=== PATIENT | male | born 1990 | race African-American/Black ===

== ENCOUNTER 2020-07-19 11:50 | Inpatient (IN) | payer SELFPAY ==
[~2020-07-19] VITALS: Ht 195.5 cm; Wt 120.2 kg
[2020-07-19 11:59] VITALS: BP 150/79
[2020-07-19 12:32] LABS: HEMATOCRIT 42.9 % (42.0-52.0); MEAN CELL VOLUME 88.1 fl (80.0-94.0); MEAN CORPUSCULAR HGB 27.3 pg (27.0-31.0); MEAN PLATELET VOLUME 9.4 fl (9.6-12.3); PLATELET COUNT AUTOMATED 164 10*3/uL (130-400); RED BLOOD COUNT 4.87 10*6/uL (4.50-5.90); RED CELL DISTRI WIDTH 12.8 % (0-14.5); WHITE BLOOD COUNT 19.2 10*3/uL (4.8-10.8)
[2020-07-19 12:45] LABS: ALBUMIN 3.5 gm/dl (3.1-4.5); ALKALINE PHOSPHATASE 85 U/L (45-117); BUN 8 mg/dl (7-24); CHLORIDE 107 mmol/L (98-107); CREATININE 0.99 mg/dL (0.70-1.30); POTASSIUM 3.9 mmol/L (3.5-5.1); SGOT/AST 17 IU/L (3-35); SGPT/ALT 26 U/L (12-78); SODIUM 139 mmol/L (136-145); TOTAL PROTEIN 7.6 gm/dL (6.4-8.2)
[2020-07-19 12:56] LABS: ATYPICAL LYMPHS 1 % (0-0); PLATELET SUFFICIENCY NORMAL (NORMAL); TOTAL CELLS COUNTED 100 #CELLS
--- NOTE | 2020-07-19 13:48 | NUR ---
PT WITH 0.9NS INCREASED TO 999 ML/HR PER ORDER.
[2020-07-19 14:18] VITALS: BP 122/71
--- NOTE | 2020-07-19 15:49 | NUR ---
PT EATING LUNCH TRAY, WITH CALL LIGHT IN REACH.
--- NOTE | 2020-07-19 16:02 | NUR ---
PT EAT 50% OF MEAL TRAY. RESTING IN BED WITH CALL LIGHT IN REACH.
--- NOTE | 2020-07-19 16:45 | NUR ---
PT STATES THAT PAIN NOT RELIEVED FROM THE MOTRIN. PT RESTLESS IN BED WITH CALL LIGHT IN REACH.
--- NOTE | 2020-07-19 21:03 | NUR ---
PT STATES HIS PAIN LEVEL IS A 6. NARCO GIVEN. PT RESTING IN BED W/ CALL LIHT IN REACH
--- NOTE | 2020-07-19 21:07 | NUR ---
PT EATING AND DRINKING W/O DIFFICULTY WHILE IN ED, NO ACUTE DISTRESS NOTED CALL LIGHT WITHIN REACH.
[2020-07-19 22:11] VITALS: BP 118/72
--- NOTE | 2020-07-20 04:30 | NUR ---
PATIENT AMBULATORY TO RESTROOM AT THIS TIME. NO DISTRESS NOTED. STEADY GAIT
[2020-07-20 06:12] LABS: BASO % 0.1 % (0.0-1.0); HEMATOCRIT 44.2 % (42.0-52.0); LYMPH # 1.2 10*3/uL (1.3-4.4); LYMPH % 6.9 % (27.0-41.0); MEAN CELL VOLUME 86.8 fl (80.0-94.0); MEAN CORPUSCULAR HGB 27.1 pg (27.0-31.0); MEAN CORPUSCULAR HGB CONC 31.2 g/dl (33.0-37.0); MEAN PLATELET VOLUME 9.7 fl (9.6-12.3); MONO # 0.4 10*3/uL (0.1-1.0); MONO % 2.2 % (3.0-9.0); NEUT # 16.2 10*3/uL (2.3-7.9); NEUT % 89.7 % (47.0-73.0); PLATELET COUNT AUTOMATED 172 10*3/uL (130-400); RED BLOOD COUNT 5.09 10*6/uL (4.50-5.90); RED CELL DISTRI WIDTH 12.4 % (0-14.5)
[2020-07-20 06:57] LABS: ALBUMIN 3.3 gm/dl (3.1-4.5); ALKALINE PHOSPHATASE 87 U/L (45-117); BUN 13 mg/dl (7-24); CHLORIDE 109 mmol/L (98-107); CREATININE 0.86 mg/dL (0.70-1.30); POTASSIUM 4.2 mmol/L (3.5-5.1); SGOT/AST 13 IU/L (3-35); SGPT/ALT 28 U/L (12-78); SODIUM 139 mmol/L (136-145); TOTAL PROTEIN 7.4 gm/dL (6.4-8.2)
[2020-07-20 07:05] VITALS: BP 132/88
[2020-07-20] MEDS ORDERED: AUGMENTIN 875875 MG PO (08:47)
[2020-07-20] MEDS ORDERED: PREDNISONE10 MG PO (08:47)
--- NOTE | 2020-07-20 09:00 | NUR ---
Traffic Control Specialist in to talk to patient. Patient states lives at home with family. There are no steps in the home. Physician: none at present Pharmacy: none listed Home health services: none Patient's level of ADLs: INDEPENDENT Patient has working utilities: all working DME:none Follow-up physician's appointment after d/c: will be made by hospitalist nurse director with doctor of patient's choice Does patient want to access PORTAL?: no Discharge plan discussed with patient, he lives at home with family, he is independent in adls and ambulation, works, drives, he states he will return home when discharged and denies any home needs, he doesn't have any insurance and was educated that med assist staff will visit with him and help him fill out paperwork for help with the hospital stay. case management will follow. GONZALO PARK
== END 2020-07-20 08:49 | disposition home or self-care (01) | DRG 872 ==
LOC: ED 11:50 → EDHOLD 13:58 → 4E 07-20 08:23 → EDHOLD 07-20 08:23
PROVIDERS: Internal Medicine; Registered Nurse; ADMIT Internal Medicine; ATTEND Internal Medicine
DX: A41.9 Sepsis, unspecified organism (principal); F12.90 Cannabis use, unspecified, uncomplicated; J03.90 Acute tonsillitis, unspecified; E66.9 Obesity, unspecified; F17.200 Nicotine dependence, unspecified, uncomplicated; D64.9 Anemia, unspecified; Z79.899 Other long term (current) drug therapy; Z68.30 Body mass index [BMI] 30.0-30.9, adult

== ENCOUNTER 2020-11-11 17:16 | Emergency (ER) | payer SELFPAY ==
[~2020-11-11] VITALS: Ht 195.5 cm; Wt 121.6 kg
[~2020-11-11 17:16] MED LIST: AUGMENTIN 875875 MG PO; PREDNISONE10 MG PO
[2020-11-11 18:12] LABS: BASO # 0.1 10*3/uL (0.0-0.1); BASO % 0.4 % (0.0-1.0); EOS % 0.2 % (1.0-4.0); HEMATOCRIT 44.1 % (42.0-52.0); LYMPH # 1.6 10*3/uL (1.3-4.4); LYMPH % 9.2 % (27.0-41.0); MEAN CELL VOLUME 86.1 fl (80.0-94.0); MEAN CORPUSCULAR HGB 27.5 pg (27.0-31.0); MEAN PLATELET VOLUME 9.3 fl (9.6-12.3); MONO # 1.5 10*3/uL (0.1-1.0); MONO % 8.6 % (3.0-9.0); NEUT # 13.7 10*3/uL (2.3-7.9); NEUT % 80.8 % (47.0-73.0); PLATELET COUNT AUTOMATED 161 10*3/uL (130-400); RED BLOOD COUNT 5.12 10*6/uL (4.50-5.90); RED CELL DISTRI WIDTH 12.4 % (0-14.5)
[2020-11-11 18:29] LABS: ALBUMIN 3.5 gm/dl (3.1-4.5); ALKALINE PHOSPHATASE 87 U/L (45-117); BUN 12 mg/dl (7-24); CHLORIDE 102 mmol/L (98-107); CREATININE 1.43 mg/dL (0.70-1.30); POTASSIUM 3.4 mmol/L (3.5-5.1); SGOT/AST 15 IU/L (3-35); SGPT/ALT 29 U/L (12-78); SODIUM 133 mmol/L (136-145); TOTAL PROTEIN 7.9 gm/dL (6.4-8.2)
[2020-11-11] MEDS ORDERED: PREDNISONE20 M1 PO (20:52)
== END 2020-11-11 20:53 | disposition home or self-care (01) ==
LOC: ED 17:16
PROVIDERS: Physician Assistant
DX: B27.90 Infectious mononucleosis, unspecified without complication (principal); F17.200 Nicotine dependence, unspecified, uncomplicated; Z79.899 Other long term (current) drug therapy; Z20.822 Contact with and (suspected) exposure to COVID-19